=== PATIENT | female | born 1950 | race Caucasian/White ===

== ENCOUNTER 2020-09-14 16:17 | Emergency (ER) | payer MEDICARE, SELFPAY ==
[2020-09-14 16:21] VITALS: BP 144/55; PULSE 67; RESP 18; TEMP 36.6; O2SAT 100
--- NOTE | 2020-09-14 16:26 | ED.GENADULT ---
HPI - General Adult General Chief complaint: Unspecified Stated complaint: Called to have EKG Time Seen by Provider: 09/14/20 17:15 Source: patient and RN notes reviewed Mode of arrival: ambulatory Limitations: no limitations History of Present Illness HPI narrative: 69-year-old female presents with concern for bilateral lower leg edema that started last night. Reports she may have taken an extra blood pressure medication in had a subsequent drop in her blood pressure, she began eating a lot of sodium to increase her blood pressure and then noticed lower leg edema. Reports a history of hypertension, however denies any history of congestive heart failure or edema in the past. Reports she had her annual physical and blood work 1 week ago and had no abnormalities at that time. She denies chest pain, shortness of breath, calf pain, calf redness, warmth. MD complaint: Lower leg swelling Related Data Home Medications Medication Instructions Recorded Confirmed amiodarone 09/14/20 apixaban [Eliquis] mg 09/14/20 atorvastatin 09/14/20 clonidine HCl 09/14/20 desvenlafaxine succinate mg PO 09/14/20 diltiazem HCl PO 09/14/20 fenofibrate mg 09/14/20 losartan 09/14/20 Allergies Allergy/AdvReac Type Severity Reaction Status Date / Time No Known Allergies Allergy Verified 09/14/20 16:34 Review of Systems Review of Systems: Narrative: CONSTITUTIONAL: Denies malaise, chills, sweats, or fever. EYES: Denies visual changes, redness, or discharge. ENT: Denies rhinorrhea, congestion, sinus pain, otalgia or sore throat. CARDIOVASCULAR: Denies chest pain, palpitations. Reports bilateral lower leg edema RESPIRATORY: Denies cough or dyspnea. GASTROINTESTINAL: Denies abdominal pain, nausea, vomiting SKIN: Denies calf redness, swelling, warmth MUSCULOSKELETAL: Denies back pain, joint pain, or myalgia. NEUROLOGIC: Denies numbness, weakness, or headache. All systems reviewed & are unremarkable except as noted in HPI and below PMFSH Comments At time of signature, agree with nursing past medical, surgical, social and family history. There is no relevant family history pertinent to the presenting complaint Exam Narrative: Exam Narrative: GENERAL: Well-appearing, well-nourished, and in no acute distress. HEAD: Normocephalic, atraumatic. EYES: PERRLA, conjunctivae clear ENT: Nares clear. Mucous membranes moist. NECK: Supple. CHEST: No respiratory distress. Clear to auscultation. No bony deformities, no asymmetry. Speaks in full sentences. HEART: Regular rate and rhythm. No murmur heard. Normal peripheral pulses. ABDOMEN: Soft, nontender, nondistended, normal active bowel sounds, no palpable masses. EXTREMITIES: Normal range of motion. Normal strength and sensation. Nonpitting ankle edema bilaterally, no erythema, induration, warmth, tenderness to calves SKIN: Warm, dry, no rash. NEURO: Alert and oriented x3. PSYCH: Normal mood and affect Course Course Emergency Course: Discussed with patient limited diagnostic capability at [facility], discussed possibility of transfer to emergency department for further evaluation. 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 Patient is aware of diagnosis, understands and agrees to treatment plan. Anticipatory guidance given. Patient agrees to follow-up as directed and is aware of reasons to seek care at the emergency department. Portions of this record may have been created with voice recognition software Vital Signs Vital signs: Vital Signs Temperature 97.8 F 09/14/20 16:21 Pulse Rate 67 09/14/20 16:21 Respiratory Rate 18 09/14/20 16:21 Blood Pressure 144/55 H 09/14/20 16:21 Pulse Oximetry 100 09/14/20 16:21 Temperature 97.8 F 09/14/20 16:21 Pulse Rate 67 09/14/20 16:21 Respiratory Rate 18 09/14/20 16:21
--- NOTE | 2020-09-14 16:59 | ECG_ITS ---
Measurements Intervals Rose Rate: 64 P: 68 AR: 215 QRS: 45 QRSD: 81 T: 51 QT: 412 QTc: 425 Interpretive Statements SINUS RHYTHM WITH FIRST DEGREE AV BLOCK BASELINE ARTIFACT- I, II, III, AVR, AVF ABNORMAL ECG Electronically Signed On 09-15-2020 7:17:27 CDT by Shahzad Castillo D.O.
== END 2020-09-14 17:30 | disposition home or self-care (01) ==
PROVIDERS: Emergency Provider Nurse Practitioner
DX: R60.0 Localized edema (principal); I44.0 Atrioventricular block, first degree; I48.91 Unspecified atrial fibrillation; E78.00 Pure hypercholesterolemia, unspecified; I10 Essential (primary) hypertension; J44.9 Chronic obstructive pulmonary disease, unspecified
CPT/HCPCS: 93005; 99213; G0463